=== PATIENT | female | born 1975 | race African-American/Black ===

== ENCOUNTER 2016-09-08 05:04 | Emergency (ER) | payer MEDICAID, OTHER ==
[~2016-09-08] VITALS: Ht 162.6 cm; Wt 72.0 kg
[2016-09-08] MEDS ORDERED: KETOROLAC 60MG/2ML VIAL IM ONE (07:45)
[2016-09-08] MEDS ORDERED: BACITRACIN ZINC OINT UDPKT TOP ONE (07:45)
[2016-09-08 08:27] VITALS: BP 127/79
== END 2016-09-08 08:29 | disposition home or self-care (01) ==
LOC: ER 05:04
DX: S20.219A Contusion of unspecified front wall of thorax, initial encounter (principal); S80.02XA Contusion of left knee, initial encounter; S70.12XA Contusion of left thigh, initial encounter; S70.11XA Contusion of right thigh, initial encounter; S80.211A Abrasion, right knee, initial encounter; V49.59XA Passenger injured in collision with other motor vehicles in traffic accident, initial encounter; Y93.89 Activity, other specified; Y92.410 Unspecified street and highway as the place of occurrence of the external cause; F17.210 Nicotine dependence, cigarettes, uncomplicated
CPT/HCPCS: 99283